=== PATIENT | male | born 1955 | race Caucasian/White ===

== ENCOUNTER → 2022-11-19 | Outpatient (CLI) | payer MEDICARE ==
[~2022-11-19] MED LIST: ATOR80TA59 PO; FAMO40TA3 PO; LEVO50CA PO; MIDO10TA PO
[2022-11-19 08:55] VITALS: TEMP 99.3
[2022-11-19 10:15] LABS: PH BODY FLUID 7.642 UNITS (NOT ESTABLISHED); SOURCE, BODY FLUID pH PLEURAL
[2022-11-19 10:29] LABS: SOURCE, BODY FLUID ALBUMIN PLEURAL
[2022-11-19 10:33] LABS: PLEURAL FL COLOR PALE YELLOW (COLORLESS); SOURCE, BODY FLUID PLEURAL
[2022-11-19 10:34] LABS: APPEARANCE, BODY FLUID HAZY (CLEAR); SOURCE, BODY FLUID GLUCOSE PLEURAL
[2022-11-19 10:35] LABS: AMYLASE, BODY FLUID 32 U/L (NOT ESTABLISHED); LDH, BODY FLUID 132 U/L (NOT ESTABLISHED); SOURCE, BODY FLUID AMYLASE PLEURAL; SOURCE, BODY FLUID LDH PLEURAL
[2022-11-19 10:36] LABS: SOURCE, BODY FLUID TOT PROTEIN PLEURAL; TOTAL PROTEIN, BODY FLUID 4.8 G/DL (NOT ESTABLISHED)
[2022-11-19 11:28] VITALS: BP 109/60; O2SAT 100
== END ==
LOC: M IRPRO 08:43
PROVIDERS: ATTEND Internal Medicine Pulmonary Disease
DX: J90 Pleural effusion, not elsewhere classified (principal)

== ENCOUNTER 2023-01-01 08:34 | Day surgery (SDC) | payer MEDICARE ==
[~2023-01-01] VITALS: Ht 177.8 cm; Wt 78.9 kg
[~2023-01-01 08:34] MED LIST changes: +ALBUTEROL SULFATE 2.5MG/0.5ML INH NEB SOLN INH ONE; +ASPI81CH33 PO; +LIDOCAINE PRES-FREE 2% 10ML AMP INH ONE
[2023-01-01] MEDS ORDERED: LR 1,000 ML IV SCH ×2 (08:55→12:35)
[2023-01-01] MEDS ORDERED: ONDANSETRON 4MG 2ML VIAL As Ordered ONE (10:23)
[2023-01-01] MEDS ORDERED: MIDAZOLAM INJ 2MG/2ML VIAL As Ordered ONE (10:23)
[2023-01-01] MEDS ORDERED: fentaNYL 100 MCG/2 ML INJECTION As Ordered ONE (10:23)
[2023-01-01] MEDS ORDERED: LIDOCAINE 2% 100MG/5ML SDV (FOR ANES.) As Ordered ONE (10:24)
[2023-01-01] MEDS ORDERED: SUGAMMADEX SODIUM 500 MG/5 ML VIAL (BRIDION) As Ordered ONE (10:24)
[2023-01-01] MEDS ORDERED: ROCURONIUM BROMIDE 50MG/5ML VIAL As Ordered ONE ×2 (10:24→10:48)
[2023-01-01] MEDS ORDERED: propofoL 200 MG/20 ML VIAL As Ordered ONE (10:24)
[2023-01-01] MEDS ORDERED: THROMBIN 5,000 UNITS VIAL As Ordered ONE (10:38)
[2023-01-01] MEDS ORDERED: EPINEPHrine 1MG/10ML SYRINGE 1.5IN As Ordered ONE (10:38)
[2023-01-01] MEDS ORDERED: CETACAINE SPRAY 5GM As Ordered ONE (10:38)
[2023-01-01] MEDS ORDERED: oxyCODONE 5MG TAB PO PRN (12:35)
[2023-01-01] MEDS ORDERED: ONDANSETRON 4MG 2ML VIAL IV PRN (12:35)
[2023-01-01] MEDS ORDERED: fentaNYL 100 MCG/2 ML INJECTION IV PRN (12:35)
[2023-01-01] MEDS ORDERED: HYDROMORPHONE HCL 0.5 MG/ 0.5 ML SYRINGE IV PRN (12:35)
[2023-01-01 13:14] VITALS: BP 104/53; TEMP 98.3; O2SAT 98
== END 2023-01-01 13:35 | disposition home or self-care (01) ==
LOC: M SDC 08:34
PROVIDERS: ATTEND Internal Medicine Pulmonary Disease
DX: J84.10 Pulmonary fibrosis, unspecified (principal); J43.9 Emphysema, unspecified; E03.9 Hypothyroidism, unspecified; E78.5 Hyperlipidemia, unspecified; Z79.899 Other long term (current) drug therapy; Z80.0 Family history of malignant neoplasm of digestive organs; Z80.1 Family history of malignant neoplasm of trachea, bronchus and lung; Z85.21 Personal history of malignant neoplasm of larynx; Z86.711 Personal history of pulmonary embolism; Z87.891 Personal history of nicotine dependence; Z90.02 Acquired absence of larynx; Z93.0 Tracheostomy status; Z92.21 Personal history of antineoplastic chemotherapy; Z92.3 Personal history of irradiation
CPT/HCPCS: 31624; 31627; 31628; 31629; 31654; 71045; 76000; 87070; 87077; 87102; 87116; 87186; 87205; 87206; 88108; 88173; 88305; 88312; 88313; J0171; J1100; J2250; J2405; J3010

== ENCOUNTER 2023-03-03 08:19 | Inpatient (IN) | payer MEDICARE ==
[~2023-03-03] VITALS: Ht 175.3 cm; Wt 76.9 kg
[2023-03-03] MEDS: KETOROLAC 30 MG/ML 1ML VIAL IV SCH
[~2023-03-03 08:19] MED LIST changes: -ALBUTEROL SULFATE 2.5MG/0.5ML INH NEB SOLN INH ONE; +LIDOCAINE 1% MDV 20ML VIAL As Ordered ONE; -LIDOCAINE PRES-FREE 2% 10ML AMP INH ONE
[2023-03-03 08:58] LABS: PLATELET COUNT, AUTOMATED 569 10^3/uL (150-450)
[2023-03-03 09:20] LABS: INR 1.33
[2023-03-03] MEDS ORDERED: MIDODRINE 5 MG TAB PO SCH (16:00)
[2023-03-03 17:20] LABS: BASO % 0.2 % (0.0-1.0); EOS % 0.2 % (0.0-3.0); HEMATOCRIT 27.1 % (42.0-52.0); HEMOGLOBIN 8.8 g/dl (13.5-17.5); LYMPH # 0.5 10^3/uL (1.5-5.0); LYMPH % 4.1 % (24.0-44.0); MEAN CORPUSCULAR HEMOGLOBIN 25.7 pg (27.0-33.0); MEAN CORPUSCULAR HGB CONC 32.5 g/dl (32.0-36.5); MONO # 1.1 10^3/uL (0.0-0.8); MONO % 8.7 % (2.0-8.0); NEUTROPHILS # 11.3 10^3/uL (1.5-8.5); PLATELET COUNT, AUTOMATED 498 10^3/uL (150-450); RED BLOOD COUNT 3.43 10^6/uL (4.30-6.10); WHITE BLOOD COUNT 13.1 10^3/uL (4.0-10.0)
[2023-03-03] MEDS ORDERED: ONDANSETRON 4MG 2ML VIAL IV PRN (17:30)
[2023-03-03] MEDS ORDERED: ACETAMINOPHEN TAB 650MG DOSE (2X325MG) PO PRN (17:30)
[2023-03-03] MEDS ORDERED: LEVALBUTEROL 1.25MG 0.5ML CONCENTRATE NEB NEB PRN (17:30)
[2023-03-03] MEDS ORDERED: PERCOCET 5MG/325MG TAB PO PRN ×2 (17:30)
[2023-03-03] MEDS ORDERED: BISACODYL 10MG SUPP PR PRN (17:30)
[2023-03-03] MEDS ORDERED: LIDOCAINE 1% MDV 20ML VIAL As Ordered ONE (17:35)
[2023-03-03 17:41] LABS: ERYTHROCYTE SEDIMENTATION RATE > 130 mm/hr (0-20)
[2023-03-03 17:56] LABS: CPK CREATINE PHOSPHOKINASE 25 U/L (46-171)
[2023-03-03 17:57] LABS: ALBUMIN 1.8 G/DL (3.2-5.2); ALKALINE PHOSPHATASE 99 U/L (46-116); ALT/SGPT 31 U/L (7.0-40); AST/SGOT 35 U/L (<34); BILIRUBIN,TOTAL 0.8 MG/DL (0.3-1.2); BLOOD UREA NITROGEN 15 MG/DL (9-23); CALCIUM LEVEL 8.2 MG/DL (8.3-10.6); CARBON DIOXIDE LEVEL 28 MMOL/L (20-31); CHLORIDE LEVEL 94 MMOL/L (98-107); CK-MB VALUE MASS < 1.0 NG/ML (<3.6); CREATININE FOR GFR 0.52 MG/DL (0.70-1.30); GLOMERULAR FILTRATION RATE > 60.0 (>49); GLUCOSE, FASTING 108 MG/DL (74-106); MAGNESIUM LEVEL 2.1 MG/DL (1.8-2.4); POTASSIUM SERUM 3.9 MMOL/L (3.5-5.1); SODIUM LEVEL 132 MMOL/L (136-145); TOTAL PROTEIN 6.2 G/DL (5.7-8.2)
[2023-03-03 18:08] LABS: PROCALCITONIN 0.23 ng/ml
[2023-03-03 19:01] VITALS: BP 109/55; TEMP 98; O2SAT 84; O2SAT 93
[2023-03-03] MEDS: PIPERACILLIN/TAZOBACTAM SOD 4.5 GM in D5W MINI-BAG PLUS 50 ML IV SCH (20:00)
[2023-03-03] MEDS: LEVALBUTEROL 1.25MG 0.5ML CONCENTRATE NEB NEB SCH (20:34)
[2023-03-03] MEDS ORDERED: ATORVASTATIN 20 MG TAB PO SCH (21:00)
[2023-03-03] MEDS: DOCUSATE SODIUM 100MG CAPSULE PO SCH (21:00)
[2023-03-03] MEDS ORDERED: ACETAMINOPHEN TAB 650MG DOSE (2X325MG) PEG PRN (22:10)
[2023-03-03] MEDS: ATORVASTATIN 20 MG TAB PEG SCH (23:33)
[2023-03-03] MEDS: PANTOPRAZOLE 40MG VIAL IV SCH (23:33)
[2023-03-03 23:53] VITALS: BP 90/54; TEMP 98.9; O2SAT 93
[2023-03-04] VITALS (10 sets, daily range): BP systolic 77–98; BP diastolic 50–58; TEMP 97.1–98.9; O2SAT 90–98
[2023-03-04] MEDS: PIPERACILLIN/TAZOBACTAM SOD 4.5 GM in D5W MINI-BAG PLUS 50 ML IV SCH ×4 (01:05→20:42)
[2023-03-04] MEDS: LEVALBUTEROL 1.25MG 0.5ML CONCENTRATE NEB NEB SCH ×4 (01:07→21:18)
[2023-03-04] MEDS ORDERED: PERCOCET 5MG/325MG TAB PEG PRN ×2 (01:30)
[2023-03-04] MEDS ORDERED: MIDODRINE 5 MG TAB PEG ONE (04:00)
[2023-03-04 05:37] LABS: BASO % 0.1 % (0.0-1.0); EOS % 0.1 % (0.0-3.0); HEMATOCRIT 25.2 % (42.0-52.0); HEMOGLOBIN 8.3 g/dl (13.5-17.5); LYMPH # 0.4 10^3/uL (1.5-5.0); LYMPH % 2.6 % (24.0-44.0); MEAN CORPUSCULAR HEMOGLOBIN 25.7 pg (27.0-33.0); MEAN CORPUSCULAR HGB CONC 32.9 g/dl (32.0-36.5); MONO # 0.9 10^3/uL (0.0-0.8); MONO % 6.6 % (2.0-8.0); NEUTROPHILS % 89.6 % (36.0-66.0); PLATELET COUNT, AUTOMATED 445 10^3/uL (150-450); RED BLOOD COUNT 3.23 10^6/uL (4.30-6.10); WHITE BLOOD COUNT 13.4 10^3/uL (4.0-10.0)
[2023-03-04] MEDS: LEVOTHYROXINE 50MCG TABLET (0.05MG) PEG SCH (05:50)
[2023-03-04] MEDS ORDERED: LEVOTHYROXINE 50MCG TABLET (0.05MG) PO SCH (06:00)
[2023-03-04] MEDS: KETOROLAC 30 MG/ML 1ML VIAL IV SCH ×5 (06:00→23:54)
[2023-03-04 06:02] LABS: BLOOD UREA NITROGEN 17 MG/DL (9-23); CALCIUM LEVEL 7.7 MG/DL (8.3-10.6); CARBON DIOXIDE LEVEL 28 MMOL/L (20-31); CHLORIDE LEVEL 95 MMOL/L (98-107); CREATININE FOR GFR 0.54 MG/DL (0.70-1.30); GLOMERULAR FILTRATION RATE > 60.0 (>49); GLUCOSE, FASTING 174 MG/DL (74-106); POTASSIUM SERUM 3.6 MMOL/L (3.5-5.1); SODIUM LEVEL 131 MMOL/L (136-145)
[2023-03-04] MEDS ORDERED: VANCOMYCIN HCL 1,000 MG, VIAL MATE ADAPTER 1 EACH in D5W 250 ML IV SCH (07:50)
[2023-03-04] MEDS ORDERED: COSYNTROPIN 0.25 MG/ML 1ML VIAL IV ONE (07:55)
[2023-03-04] MEDS: MOM 30ML SUSPENSION UDC PEG SCH (08:19)
[2023-03-04] MEDS: DOCUSATE SODIUM 100MG CAPSULE PO SCH ×2 (08:19→20:43)
[2023-03-04] MEDS: MIDODRINE 5 MG TAB PEG SCH ×3 (08:31→16:28)
[2023-03-04 08:32] LABS: CORTISOL AM 22.6 UG/DL (4.3-22.4)
[2023-03-04] MEDS ORDERED: PANTOPRAZOLE 40MG TAB (PROTONIX) PO SCH (09:00)
[2023-03-04] MEDS ORDERED: MOM 30ML SUSPENSION UDC PO SCH (09:00)
[2023-03-04] MEDS: NYSTATIN 500,000U/5ML SUSP UDC SS SCH ×2 (16:28→20:43)
[2023-03-04] MEDS: ATORVASTATIN 20 MG TAB PEG SCH (20:43)
[2023-03-04] MEDS: PANTOPRAZOLE 40MG VIAL IV SCH (23:53)
[2023-03-05] VITALS (12 sets, daily range): BP systolic 75–98; BP diastolic 40–84; TEMP 97.4–98.6; O2SAT 95–98
[2023-03-05] MEDS ORDERED: NS 500 ML IV ONE ×5 (00:40→20:30)
[2023-03-05] MEDS: LEVALBUTEROL 1.25MG 0.5ML CONCENTRATE NEB NEB SCH ×4 (01:57→19:01)
[2023-03-05 02:00] LABS: VENOUS BASE EXCESS 4.2 (-2.0-2.0); VENOUS HCO3 28.5 MMOL/L (23.0-27.0); VENOUS O2 SATURATION 98.9 % (60.0-80.0); VENOUS PARTIAL PRESSURE CO2 41.6 mmHg (38.0-50.0); VENOUS PH 7.454 UNITS (7.330-7.430); VENOUS STANDARD HCO3 28.3 MMOL/L; VENOUS TOTAL CO2 29.8 MMOL/L (24.0-28.0)
[2023-03-05] MEDS: PIPERACILLIN/TAZOBACTAM SOD 4.5 GM in D5W MINI-BAG PLUS 50 ML IV SCH ×5 (02:28→21:15)
[2023-03-05 02:38] LABS: BLOOD UREA NITROGEN 18 MG/DL (9-23); CALCIUM LEVEL 7.6 MG/DL (8.3-10.6); CARBON DIOXIDE LEVEL 28 MMOL/L (20-31); CHLORIDE LEVEL 95 MMOL/L (98-107); CREATININE FOR GFR 0.59 MG/DL (0.70-1.30); GLOMERULAR FILTRATION RATE > 60.0 (>49); GLUCOSE, FASTING 172 MG/DL (74-106); POTASSIUM SERUM 2.9 MMOL/L (3.5-5.1); SODIUM LEVEL 129 MMOL/L (136-145)
[2023-03-05] MEDS: POTASSIUM CHLORIDE 10% LIQ 20MEQ/15ML UDC PEG SCH ×2 (03:31→06:23)
[2023-03-05] MEDS: LEVOTHYROXINE 50MCG TABLET (0.05MG) PEG SCH (05:05)
[2023-03-05] MEDS: MIDODRINE 5 MG TAB PEG SCH ×3 (05:06→17:10)
[2023-03-05] MEDS: KETOROLAC 30 MG/ML 1ML VIAL IV SCH ×3 (05:32→18:23)
[2023-03-05 05:52] LABS: CHLORIDE,RANDOM URINE 19.99999 MMOL/L; SODIUM,RANDOM URINE < 10 MMOL/L
[2023-03-05 06:05] LABS: BASO % 0.2 % (0.0-1.0); EOS # 0.1 10^3/uL (0.0-0.5); EOS % 0.4 % (0.0-3.0); HEMOGLOBIN 7.8 g/dl (13.5-17.5); LYMPH # 0.3 10^3/uL (1.5-5.0); LYMPH % 2.6 % (24.0-44.0); MEAN CORPUSCULAR HGB CONC 32.5 g/dl (32.0-36.5); MONO # 0.8 10^3/uL (0.0-0.8); MONO % 6.7 % (2.0-8.0); NEUTROPHILS # 11.2 10^3/uL (1.5-8.5); NEUTROPHILS % 89.3 % (36.0-66.0); PLATELET COUNT, AUTOMATED 405 10^3/uL (150-450); WHITE BLOOD COUNT 12.5 10^3/uL (4.0-10.0)
[2023-03-05 06:31] LABS: BLOOD UREA NITROGEN 17 MG/DL (9-23); CALCIUM LEVEL 7.5 MG/DL (8.3-10.6); CARBON DIOXIDE LEVEL 27 MMOL/L (20-31); CHLORIDE LEVEL 98 MMOL/L (98-107); CREATININE FOR GFR 0.57 MG/DL (0.70-1.30); GLOMERULAR FILTRATION RATE > 60.0 (>49); GLUCOSE, FASTING 157 MG/DL (74-106); POTASSIUM SERUM 3.8 MMOL/L (3.5-5.1); SODIUM LEVEL 134 MMOL/L (136-145)
[2023-03-05] MEDS: DOCUSATE SODIUM 100MG CAPSULE PO SCH (09:00)
[2023-03-05 09:12] LABS: HEMATOCRIT 27.8 % (42.0-52.0); HEMOGLOBIN 8.8 g/dl (13.5-17.5)
[2023-03-05] MEDS: MOM 30ML SUSPENSION UDC PEG SCH (09:14)
[2023-03-05] MEDS: NYSTATIN 500,000U/5ML SUSP UDC SS SCH ×4 (09:14→21:15)
[2023-03-05] MEDS: DOCUSATE SOD LIQ 100MG/10ML UDC GT SCH ×2 (10:42→21:15)
[2023-03-05] MEDS: ATORVASTATIN 20 MG TAB PEG SCH (21:15)
[2023-03-06] VITALS (16 sets, daily range): BP systolic 77–120; BP diastolic 48–70; TEMP 97.4–99.4; O2SAT 90–98
[2023-03-06] MEDS: PANTOPRAZOLE 40MG VIAL IV SCH (00:05)
[2023-03-06] MEDS: KETOROLAC 30 MG/ML 1ML VIAL IV SCH ×4 (00:05→17:50)
[2023-03-06] MEDS: LEVALBUTEROL 1.25MG 0.5ML CONCENTRATE NEB NEB SCH ×4 (01:22→20:57)
[2023-03-06] MEDS: PIPERACILLIN/TAZOBACTAM SOD 4.5 GM in D5W MINI-BAG PLUS 50 ML IV SCH ×4 (01:44→21:21)
[2023-03-06 04:13] LABS: BASO % 0.2 % (0.0-1.0); EOS # 0.1 10^3/uL (0.0-0.5); EOS % 0.7 % (0.0-3.0); HEMOGLOBIN 7.6 g/dl (13.5-17.5); LYMPH # 0.4 10^3/uL (1.5-5.0); LYMPH % 3.3 % (24.0-44.0); MEAN CORPUSCULAR VOLUME 78.8 fl (80.0-96.0); MONO # 0.9 10^3/uL (0.0-0.8); NEUTROPHILS # 9.5 10^3/uL (1.5-8.5); PLATELET COUNT, AUTOMATED 426 10^3/uL (150-450); RED BLOOD COUNT 2.92 10^6/uL (4.30-6.10)
[2023-03-06 04:39] LABS: BLOOD UREA NITROGEN 14 MG/DL (9-23); CALCIUM LEVEL 7.2 MG/DL (8.3-10.6); CARBON DIOXIDE LEVEL 26 MMOL/L (20-31); CHLORIDE LEVEL 98 MMOL/L (98-107); CREATININE FOR GFR 0.59 MG/DL (0.70-1.30); GLOMERULAR FILTRATION RATE > 60.0 (>49); GLUCOSE, FASTING 146 MG/DL (74-106); POTASSIUM SERUM 4.1 MMOL/L (3.5-5.1); SODIUM LEVEL 132 MMOL/L (136-145)
[2023-03-06] MEDS: LEVOTHYROXINE 50MCG TABLET (0.05MG) PEG SCH (06:43)
[2023-03-06 07:46] LABS: HEMATOCRIT 22.6 % (42.0-52.0); HEMOGLOBIN 7.3 g/dl (13.5-17.5)
[2023-03-06] MEDS ORDERED: HYDROCORTISONE 10 MG TAB PO ONE (09:00)
[2023-03-06] MEDS: MOM 30ML SUSPENSION UDC PEG SCH (09:09)
[2023-03-06] MEDS: NYSTATIN 500,000U/5ML SUSP UDC SS SCH ×4 (09:09→21:22)
[2023-03-06] MEDS: DOCUSATE SOD LIQ 100MG/10ML UDC GT SCH ×2 (09:09→21:22)
[2023-03-06] MEDS: MIDODRINE 5 MG TAB PEG SCH ×3 (09:10→17:51)
[2023-03-06 17:54] LABS: SOURCE, BODY FLUID pH PLEURAL
[2023-03-06 18:09] LABS: APPEARANCE, BODY FLUID CLEAR (CLEAR); PLEURAL FL COLOR PALE YELLOW (COLORLESS); SOURCE, BODY FLUID PLEURAL
[2023-03-06 18:16] LABS: SOURCE, BODY FLUID ALBUMIN PLEURAL
[2023-03-06 18:21] LABS: SOURCE, BODY FLUID GLUCOSE PLEURAL; SOURCE, BODY FLUID TRIG PLEURAL; TRIGLYCERIDE, BODY FLUID 17 MG/DL (NOT ESTABLISHED)
[2023-03-06 18:22] LABS: AMYLASE, BODY FLUID 29 U/L (NOT ESTABLISHED); LDH, BODY FLUID 247 U/L (NOT ESTABLISHED); SOURCE, BODY FLUID AMYLASE PLEURAL; SOURCE, BODY FLUID LDH PLEURAL
[2023-03-06 18:23] LABS: CHOLESTEROL, BODY FLUID 38 MG/DL (NOT ESTABLISHED); SOURCE, BODY FLUID CHOL PLEURAL; SOURCE, BODY FLUID TOT PROTEIN PLEURAL; TOTAL PROTEIN, BODY FLUID 4.1 G/DL (NOT ESTABLISHED)
[2023-03-06 19:19] LABS: INR 1.21; PROTHROMBIN TIME 14.9 SECONDS (12.5-14.5)
[2023-03-06 19:20] LABS: PARTIAL THROMBOPLASTIN TIME 33.7 SECONDS (24.8-34.2)
[2023-03-06 19:32] LABS: ALBUMIN 1.4 G/DL (3.2-5.2); BILIRUBIN,DIRECT 0.4 MG/DL (<0.4); BILIRUBIN,TOTAL 0.7 MG/DL (0.3-1.2); TOTAL PROTEIN 5.6 G/DL (5.7-8.2)
[2023-03-06] MEDS: ATORVASTATIN 20 MG TAB PEG SCH (21:22)
[2023-03-06] MEDS: HYDROCORTISONE 10 MG TAB PO SCH (21:22)
[2023-03-07] MEDS: PANTOPRAZOLE 40MG VIAL IV SCH ×2 (00:12→23:43)
[2023-03-07] MEDS: KETOROLAC 30 MG/ML 1ML VIAL IV SCH ×5 (00:13→23:43)
[2023-03-07] MEDS: LEVALBUTEROL 1.25MG 0.5ML CONCENTRATE NEB NEB SCH ×4 (00:48→20:33)
[2023-03-07] MEDS: PIPERACILLIN/TAZOBACTAM SOD 4.5 GM in D5W MINI-BAG PLUS 50 ML IV SCH ×4 (01:47→20:07)
[2023-03-07 03:29] VITALS: BP 92/54; TEMP 98.7; O2SAT 97
[2023-03-07 04:18] LABS: BASO % 0.2 % (0.0-1.0); EOS # 0.1 10^3/uL (0.0-0.5); EOS % 0.7 % (0.0-3.0); HEMATOCRIT 29.7 % (42.0-52.0); LYMPH # 0.3 10^3/uL (1.5-5.0); MEAN CORPUSCULAR HEMOGLOBIN 26.8 pg (27.0-33.0); MEAN CORPUSCULAR HGB CONC 33.3 g/dl (32.0-36.5); MEAN CORPUSCULAR VOLUME 80.3 fl (80.0-96.0); MONO # 0.7 10^3/uL (0.0-0.8); MONO % 6.6 % (2.0-8.0); NEUTROPHILS # 9.1 10^3/uL (1.5-8.5); NEUTROPHILS % 88.5 % (36.0-66.0); PLATELET COUNT, AUTOMATED 420 10^3/uL (150-450); WHITE BLOOD COUNT 10.3 10^3/uL (4.0-10.0)
[2023-03-07 04:19] LABS: HEMOGLOBIN 9.9 g/dl (13.5-17.5)
[2023-03-07 04:40] LABS: BLOOD UREA NITROGEN 11 MG/DL (9-23); CALCIUM LEVEL 7.6 MG/DL (8.3-10.6); CARBON DIOXIDE LEVEL 28 MMOL/L (20-31); CHLORIDE LEVEL 100 MMOL/L (98-107); CREATININE FOR GFR 0.51 MG/DL (0.70-1.30); GLOMERULAR FILTRATION RATE > 60.0 (>49); GLUCOSE, FASTING 209 MG/DL (74-106); POTASSIUM SERUM 4.1 MMOL/L (3.5-5.1); SODIUM LEVEL 133 MMOL/L (136-145)
[2023-03-07] MEDS: LEVOTHYROXINE 50MCG TABLET (0.05MG) PEG SCH (06:31)
[2023-03-07 07:39] VITALS: BP 100/57; TEMP 97.2; O2SAT 100
[2023-03-07] MEDS: DOCUSATE SOD LIQ 100MG/10ML UDC GT SCH ×2 (09:00→20:08)
[2023-03-07] MEDS: MIDODRINE 5 MG TAB PEG SCH ×3 (09:32→16:48)
[2023-03-07] MEDS: NYSTATIN 500,000U/5ML SUSP UDC SS SCH ×4 (09:32→20:07)
[2023-03-07] MEDS: MOM 30ML SUSPENSION UDC PEG SCH (09:32)
[2023-03-07 12:07] VITALS: BP 90/52; TEMP 97.5; O2SAT 100
[2023-03-07 15:50] VITALS: BP 117/60; TEMP 97.8; O2SAT 96
[2023-03-07 16:09] LABS: BODY FLUID CULTURE Not indicated. (.); LEGIONELLA ANTIGEN URINE Negative (Negative); ORGANISM ID Not indicated. (.); SPECIMEN SOURCE Urine (.); URINE STREP PNEUMONIAE ANTIGEN Negative (Negative)
[2023-03-07] MEDS: HYDROCORTISONE 10 MG TAB PO SCH (20:07)
[2023-03-07] MEDS: ATORVASTATIN 20 MG TAB PEG SCH (20:08)
[2023-03-07 21:12] VITALS: BP 98/54; TEMP 96.7; O2SAT 93
[2023-03-08] MEDS: PIPERACILLIN/TAZOBACTAM SOD 4.5 GM in D5W MINI-BAG PLUS 50 ML IV SCH ×4 (01:05→21:06)
[2023-03-08] MEDS: LEVALBUTEROL 1.25MG 0.5ML CONCENTRATE NEB NEB SCH ×4 (02:43→19:31)
[2023-03-08 03:24] VITALS: BP 90/56; TEMP 97; O2SAT 97
[2023-03-08] MEDS: LEVOTHYROXINE 50MCG TABLET (0.05MG) PEG SCH (05:36)
[2023-03-08] MEDS: KETOROLAC 30 MG/ML 1ML VIAL IV SCH ×2 (05:37→12:00)
[2023-03-08 06:22] LABS: BASO % 0.1 % (0.0-1.0); EOS # 0.1 10^3/uL (0.0-0.5); EOS % 1.3 % (0.0-3.0); HEMATOCRIT 30.4 % (42.0-52.0); LYMPH # 0.4 10^3/uL (1.5-5.0); LYMPH % 3.9 % (24.0-44.0); MEAN CORPUSCULAR HEMOGLOBIN 26.5 pg (27.0-33.0); MEAN CORPUSCULAR HGB CONC 32.9 g/dl (32.0-36.5); MEAN CORPUSCULAR VOLUME 80.4 fl (80.0-96.0); MONO # 0.7 10^3/uL (0.0-0.8); MONO % 7.4 % (2.0-8.0); NEUTROPHILS # 7.8 10^3/uL (1.5-8.5); NEUTROPHILS % 85.7 % (36.0-66.0); PLATELET COUNT, AUTOMATED 423 10^3/uL (150-450); RED BLOOD COUNT 3.78 10^6/uL (4.30-6.10); WHITE BLOOD COUNT 9.2 10^3/uL (4.0-10.0)
[2023-03-08 06:43] LABS: BLOOD UREA NITROGEN 12 MG/DL (9-23); CALCIUM LEVEL 7.4 MG/DL (8.3-10.6); CARBON DIOXIDE LEVEL 29 MMOL/L (20-31); CHLORIDE LEVEL 102 MMOL/L (98-107); CREATININE FOR GFR 0.49 MG/DL (0.70-1.30); GLOMERULAR FILTRATION RATE > 60.0 (>49); GLUCOSE, FASTING 181 MG/DL (74-106); POTASSIUM SERUM 4.4 MMOL/L (3.5-5.1); SODIUM LEVEL 136 MMOL/L (136-145)
[2023-03-08 07:45] VITALS: BP_SYST 105; BP_SYST 106; BP_DIAS 51; BP_DIAS 59; TEMP 98.5; O2SAT 99
[2023-03-08] MEDS: MOM 30ML SUSPENSION UDC PEG SCH (09:00)
[2023-03-08] MEDS: DOCUSATE SOD LIQ 100MG/10ML UDC GT SCH ×2 (09:00→21:00)
[2023-03-08] MEDS: MIDODRINE 5 MG TAB PEG SCH ×3 (10:04→17:03)
[2023-03-08] MEDS: NYSTATIN 500,000U/5ML SUSP UDC SS SCH ×4 (10:05→21:06)
[2023-03-08 15:51] VITALS: BP 93/55; TEMP 97.8; O2SAT 97
[2023-03-08] MEDS: HYDROCORTISONE 10 MG TAB PO SCH (21:06)
[2023-03-08] MEDS: ATORVASTATIN 20 MG TAB PEG SCH (21:07)
[2023-03-08] MEDS: PANTOPRAZOLE 40MG VIAL IV SCH (21:18)
[2023-03-08 23:52] VITALS: BP 93/54; TEMP 97.8; O2SAT 97
[2023-03-09] MEDS: LEVALBUTEROL 1.25MG 0.5ML CONCENTRATE NEB NEB SCH ×4 (01:04→19:22)
[2023-03-09] MEDS: PIPERACILLIN/TAZOBACTAM SOD 4.5 GM in D5W MINI-BAG PLUS 50 ML IV SCH ×4 (02:34→19:39)
[2023-03-09 05:25] LABS: BASO % 0.2 % (0.0-1.0); EOS # 0.1 10^3/uL (0.0-0.5); HEMATOCRIT 32.7 % (42.0-52.0); HEMOGLOBIN 10.6 g/dl (13.5-17.5); LYMPH # 0.4 10^3/uL (1.5-5.0); LYMPH % 4.1 % (24.0-44.0); MEAN CORPUSCULAR HEMOGLOBIN 26.6 pg (27.0-33.0); MEAN CORPUSCULAR HGB CONC 32.4 g/dl (32.0-36.5); MEAN CORPUSCULAR VOLUME 82.2 fl (80.0-96.0); MONO # 0.6 10^3/uL (0.0-0.8); MONO % 6.5 % (2.0-8.0); NEUTROPHILS # 8.4 10^3/uL (1.5-8.5); NEUTROPHILS % 86.4 % (36.0-66.0); PLATELET COUNT, AUTOMATED 416 10^3/uL (150-450); RED BLOOD COUNT 3.98 10^6/uL (4.30-6.10); WHITE BLOOD COUNT 9.7 10^3/uL (4.0-10.0)
[2023-03-09 05:50] LABS: BLOOD UREA NITROGEN 11 MG/DL (9-23); CALCIUM LEVEL 7.7 MG/DL (8.3-10.6); CARBON DIOXIDE LEVEL 26 MMOL/L (20-31); CHLORIDE LEVEL 102 MMOL/L (98-107); GLOMERULAR FILTRATION RATE > 60.0 (>49); GLUCOSE, FASTING 226 MG/DL (74-106); POTASSIUM SERUM 4.5 MMOL/L (3.5-5.1); SODIUM LEVEL 136 MMOL/L (136-145)
[2023-03-09] MEDS: LEVOTHYROXINE 50MCG TABLET (0.05MG) PEG SCH (06:09)
[2023-03-09 07:35] VITALS: BP 91/52; TEMP 97.7; O2SAT 96
[2023-03-09] MEDS: DOCUSATE SOD LIQ 100MG/10ML UDC GT SCH ×2 (09:00→19:40)
[2023-03-09] MEDS: MOM 30ML SUSPENSION UDC PEG SCH (09:00)
[2023-03-09] MEDS: MIDODRINE 5 MG TAB PEG SCH ×3 (10:07→17:10)
[2023-03-09] MEDS: NYSTATIN 500,000U/5ML SUSP UDC SS SCH ×4 (10:08→19:40)
[2023-03-09 16:55] VITALS: BP 114/58; TEMP 97.5; O2SAT 96
[2023-03-09] MEDS: HYDROCORTISONE 10 MG TAB PO SCH (19:39)
[2023-03-09] MEDS: ATORVASTATIN 20 MG TAB PEG SCH (19:40)
[2023-03-09 20:50] VITALS: BP 109/56; TEMP 97.5; O2SAT 95
[2023-03-09] MEDS: PANTOPRAZOLE 40MG VIAL IV SCH (22:02)
[2023-03-10] VITALS (10 sets, daily range): BP systolic 99–111; BP diastolic 51–70; TEMP 97.2–97.7; O2SAT 92–98
[2023-03-10] MEDS: LEVALBUTEROL 1.25MG 0.5ML CONCENTRATE NEB NEB SCH ×4 (01:00→20:17)
[2023-03-10] MEDS: PIPERACILLIN/TAZOBACTAM SOD 4.5 GM in D5W MINI-BAG PLUS 50 ML IV SCH ×3 (01:05→13:55)
[2023-03-10] MEDS: LEVOTHYROXINE 50MCG TABLET (0.05MG) PEG SCH (05:15)
[2023-03-10] MEDS: HYDROCORTISONE 5MG TABLET PO SCH (05:20)
[2023-03-10 05:35] LABS: BASO % 0.3 % (0.0-1.0); EOS # 0.1 10^3/uL (0.0-0.5); EOS % 1.8 % (0.0-3.0); HEMATOCRIT 33.5 % (42.0-52.0); HEMOGLOBIN 10.5 g/dl (13.5-17.5); LYMPH # 0.5 10^3/uL (1.5-5.0); MEAN CORPUSCULAR HEMOGLOBIN 26.3 pg (27.0-33.0); MEAN CORPUSCULAR HGB CONC 31.3 g/dl (32.0-36.5); MEAN CORPUSCULAR VOLUME 83.8 fl (80.0-96.0); MONO # 0.7 10^3/uL (0.0-0.8); MONO % 8.4 % (2.0-8.0); NEUTROPHILS # 6.3 10^3/uL (1.5-8.5); NEUTROPHILS % 80.4 % (36.0-66.0); PLATELET COUNT, AUTOMATED 414 10^3/uL (150-450); WHITE BLOOD COUNT 7.8 10^3/uL (4.0-10.0)
[2023-03-10 05:44] LABS: ERYTHROCYTE SEDIMENTATION RATE > 130 mm/hr (0-20)
[2023-03-10 06:07] LABS: ALBUMIN 1.4 G/DL (3.2-5.2); ALKALINE PHOSPHATASE 75 U/L (46-116); ALT/SGPT 24 U/L (7.0-40); AST/SGOT 33 U/L (<34); BILIRUBIN,TOTAL 0.3 MG/DL (0.3-1.2); BLOOD UREA NITROGEN 12 MG/DL (9-23); CALCIUM LEVEL 7.7 MG/DL (8.3-10.6); CARBON DIOXIDE LEVEL 29 MMOL/L (20-31); CHLORIDE LEVEL 102 MMOL/L (98-107); CREATININE FOR GFR 0.54 MG/DL (0.70-1.30); GLOMERULAR FILTRATION RATE > 60.0 (>49); GLUCOSE, FASTING 172 MG/DL (74-106); POTASSIUM SERUM 4.4 MMOL/L (3.5-5.1); SODIUM LEVEL 137 MMOL/L (136-145); TOTAL PROTEIN 5.4 G/DL (5.7-8.2)
[2023-03-10 06:14] LABS: PROCALCITONIN 0.05 ng/ml
[2023-03-10 06:29] LABS: HEMOGLOBIN A1c 5.8 % (4.0-6.0)
[2023-03-10] MEDS: DOCUSATE SOD LIQ 100MG/10ML UDC GT SCH ×2 (09:13→22:26)
[2023-03-10] MEDS: NYSTATIN 500,000U/5ML SUSP UDC SS SCH ×4 (09:13→22:26)
[2023-03-10] MEDS: MIDODRINE 5 MG TAB PEG SCH ×3 (09:14→16:40)
[2023-03-10] MEDS: MOM 30ML SUSPENSION UDC PEG SCH (09:14)
[2023-03-10] MEDS: FLUDROCORTISONE ACETATE 0.1 MG TAB PO SCH (09:17)
[2023-03-10] MEDS: HYDROCORTISONE 10 MG TAB PO SCH (13:56)
[2023-03-10] MEDS: PANTOPRAZOLE 40MG VIAL IV SCH (22:26)
[2023-03-10] MEDS: ATORVASTATIN 20 MG TAB PEG SCH (22:27)
[2023-03-11 02:00] VITALS: BP 100/62; TEMP 97.1; O2SAT 94
[2023-03-11] MEDS: LEVALBUTEROL 1.25MG 0.5ML CONCENTRATE NEB NEB SCH ×3 (02:36→13:50)
[2023-03-11] MEDS: LEVOTHYROXINE 50MCG TABLET (0.05MG) PEG SCH (06:16)
[2023-03-11] MEDS: HYDROCORTISONE 5MG TABLET PO SCH (06:17)
[2023-03-11 06:25] VITALS: BP 98/50; TEMP 97.3; O2SAT 94
[2023-03-11] MEDS: MIDODRINE 5 MG TAB PEG SCH ×2 (08:54→12:14)
[2023-03-11] MEDS: MOM 30ML SUSPENSION UDC PEG SCH (08:54)
[2023-03-11] MEDS: FLUDROCORTISONE ACETATE 0.1 MG TAB PO SCH (08:54)
[2023-03-11] MEDS: NYSTATIN 500,000U/5ML SUSP UDC SS SCH ×2 (08:54→12:14)
[2023-03-11] MEDS: DOCUSATE SOD LIQ 100MG/10ML UDC GT SCH (08:54)
[2023-03-11 08:55] VITALS: BP 105/58
[2023-03-11 10:00] VITALS: BP 106/58; TEMP 97.2; O2SAT 95
[2023-03-11 12:15] VITALS: BP 110/54
[2023-03-11 14:12] VITALS: BP 107/55
[2023-03-11] MEDS: HYDROCORTISONE 10 MG TAB PO SCH (14:14)
== END 2023-03-11 15:06 | disposition home or self-care (01) | DRG 199 ==
LOC: M IRPRO 08:19 → M IRINP 08:20 → M PCU 17:23 → OBSVTOIN 03-04 07:50 → M MSPAV 03-09 16:49
PROVIDERS: ADMIT General Practice; ATTEND Student in an Organized Health Care Education/Training Program
PROC: 0W9B30Z Drainage of Left Pleural Cavity with Drainage Device, Percutaneous Approach (ICD-10-PCS; 2023-03-03)
PROC: 0BBC3ZX Excision of Right Upper Lung Lobe, Percutaneous Approach, Diagnostic (ICD-10-PCS; principal; 2023-03-03 09:00)
PROC: 0W9B3ZZ Drainage of Left Pleural Cavity, Percutaneous Approach (ICD-10-PCS; 2023-03-06)
DX: J95.811 Postprocedural pneumothorax (principal); A41.9 Sepsis, unspecified organism; J86.9 Pyothorax without fistula; J15.1 Pneumonia due to Pseudomonas; J44.0 Chronic obstructive pulmonary disease with (acute) lower respiratory infection; J90 Pleural effusion, not elsewhere classified; B37.0 Candidal stomatitis; Z93.0 Tracheostomy status; K21.9 Gastro-esophageal reflux disease without esophagitis; I25.10 Atherosclerotic heart disease of native coronary artery without angina pectoris; D63.8 Anemia in other chronic diseases classified elsewhere; Z85.21 Personal history of malignant neoplasm of larynx; I95.89 Other hypotension; I25.2 Old myocardial infarction; E03.9 Hypothyroidism, unspecified; Z88.8 Allergy status to other drugs, medicaments and biological substances; Z79.899 Other long term (current) drug therapy; J84.10 Pulmonary fibrosis, unspecified; Z93.1 Gastrostomy status; Z87.891 Personal history of nicotine dependence